=== PATIENT | female | born 1995 | race American Indian/Alaskan Native ===

== ENCOUNTER 2017-06-29 23:00 | Inpatient (IN) | payer SELFPAY ==
--- NOTE | 2017-06-30 00:46 | ED PDOC ---
HPI: Psych/Substance Abuse Time Seen by Provider: 06/29/17 23:20 Chief Complaint (Nursing): Psychiatric Evaluation Chief Complaint (Provider): Psychiatric Evaluation History Per: Patient History/Exam Limitations: no limitations Current Symptoms Are (Timing): Still Present Suicide/Self Injury Attempted (Context): None Associated Symptoms: Depression Additional Complaint(s): 22 year old female presents to ED for a psychiatric evaluation and has no past medical history. Police state that patient was [place] by the pier and admitted to feeling depressed. Agreed to be evaluated at [place] ED for depression. PCP: None Past Medical History Reviewed: Historical Data, Nursing Documentation, Vital Signs Vital Signs: Last Vital Signs Temp 98.0 F 06/29/17 23:03 Pulse 118 H 06/29/17 23:03 Resp 16 06/29/17 23:03 BP 144/88 06/29/17 23:03 Pulse Ox 99 06/29/17 23:03 - Medical History PMH: No Chronic Diseases - Surgical History Surgical History: No Surg Hx - Family History Family History: States: No Known Family Hx - Allergies Allergies/Adverse Reactions: Allergies Allergy/AdvReac Type Severity Reaction Status Date / Time No Known Allergies Allergy Verified 06/29/17 23:03 Review of Systems ROS Statement: Except As Marked, All Systems Reviewed And Found Negative Psych: Positive for: Depression Physical Exam - Reviewed Nursing Documentation Reviewed: Yes Vital Signs Reviewed: Yes - Physical Exam Appears: Positive for: Non-toxic, No Acute Distress Skin: Positive for: Normal Color, Warm, Dry Eye Exam: Positive for: Normal appearance Neck: Positive for: Normal, Painless ROM, Supple Cardiovascular/Chest: Positive for: Regular Rate, Rhythm, Tachycardia Respiratory: Positive for: Normal Breath Sounds. Negative for: Respiratory Distress Gastrointestinal/Abdominal: Positive for: Normal Exam, Soft. Negative for: Tenderness Back: Positive for: Normal Inspection Extremity: Positive for: Normal ROM. Negative for: Deformity Neurologic/Psych: Positive for: Alert, Oriented, Mood/Affect (flat affect) - Laboratory Results Result Diagrams: 06/30/17 03:30 06/30/17 03:30 - ECG O2 Sat by Pulse Oximetry: 99 (RA) Pulse Ox Interpretation: Normal Medical Decision Making Medical Decision Makin Initial impression: crisis evaluation Initial plan: * 1:1 OBS * Crisis evaluation * UPreg * UDip * Influenza A B 0259 Patient evaluated by crisis and will be admitted for further treatment under Dr. Perkins. Labs reviewed: no clinically significant abnormalities. Dx: depression. Patient is medically stable for psychiatric admission. 0441 CXR: NAD Scribe Attestation: Documented by Bertha Jj acting as a scribe for Matthew Burroughs MD. Scribmay Attestation: All medical record entries made by the Scribe were at my direction and personally dictated by me. I have reviewed the chart and agree that the record accurately reflects my personal performance of the history, physical exam, medical decision making, and the department course for this patient. I have also personally directed, reviewed, and agree with the discharge instructions and disposition. Disposition - Clinical Impression Clinical Impression: Depression - Patient ED Disposition Is Patient to be Admitted: Yes - Disposition Disposition Time: 03:00 Condition: FAIR - Pt Status Changed To: Hospital Disposition Of: Inpatient (INPATIENT PSYCH) - Admit Certification Admit to Inpatient:: After my assessment, the patient will require hospitalization for at least two midnights. This is because of the severity of symptoms shown, intensity of services needed, and/or the medical risk in this patient being treated as an outpatient. - POA Present On Arrival: None
[2017-06-30 03:36] LABS: BASO % 0.6 % (0.0-2.0); EOS % 0.5 % (0.0-4.0); HEMATOCRIT 38.7 % (34.0-47.0); LYMPH # 3.4 K/uL (1.0-4.3); LYMPH % 40.8 % (20.0-40.0); MEAN CELL VOLUME 89.3 fl (81.0-99.0); MEAN CORPUSCULAR HEMOGLOBIN 29.2 pg (27.0-31.0); MEAN CORPUSCULAR HGB CONC 32.7 g/dL (33.0-37.0); MONO # 0.5 K/uL (0.0-0.8); MONO % 5.5 % (0.0-10.0); NEUT # 4.4 K/uL (1.8-7.0); NEUT % 52.6 % (50.0-75.0); NRBC % 0.2 % (0.0-0.0); WHITE BLOOD COUNT 8.3 K/uL (4.8-10.8)
[2017-06-30 03:48] LABS: ALB/GLOB RATIO 1.4 (1.0-2.1); ALCOHOL SERUM < 10 mg/dl (0-10); ALKALINE PHOSPHATASE 56 U/L (38-126); ALT/SGPT 23 U/L (9-52); AST/SGOT 18 U/L (14-36); BILIRUBIN,TOTAL 0.5 mg/dl (0.2-1.3); BLOOD UREA NITROGEN 8 mg/dl (7-17); CARBON DIOXIDE 27 mmol/L (22-30); CHLORIDE 105 mmol/L (98-107); GFR AFRICAN-AMERICAN > 60; GLUCOSE,RANDOM 112 mg/dL (65-105); SODIUM 144 mmol/l (132-148); TOTAL PROTEIN 7.9 G/DL (6.3-8.2)
[2017-06-30 03:54] LABS: RBC URINE 2 /hpf (0-3); URINE BACTERIA RARE (<OCC); URINE BILIRUBIN NEGATIVE (NEGATIVE); URINE BLOOD NEGATIVE (NEGATIVE); URINE COLOR YELLOW (YELLOW); URINE GLUCOSE (UA) NEG (Normal); URINE KETONE 80 mg/dL (NEGATIVE); URINE LEUKOCYTE ESTERASE NEG Leu/uL (Negative); URINE PROTEIN 30 mg/dL (NEGATIVE); URINE UROBILINOGEN 0.2-1.0 mg/dL (0.2-1.0); WBC URINE 1 /hpf (0-5)
[2017-06-30] MEDS ORDERED: Alum-Mag Hydrox-Simethicone Susp (30 mL) PO PRN (05:15)
[2017-06-30] MEDS ORDERED: Magnesium Hydroxide Susp 30 ml UD PO PRN (05:15)
[2017-06-30] MEDS ORDERED: DiphenhydrAMINE 50 mg/ml Inj IM PRN (05:15)
--- NOTE | 2017-06-30 05:29 | PCM.BM ---
<Bunny Moreno - Last Filed: 06/30/17 05:27> Treatment Plan Problems - Problems identified on initial assessmt Hopelessness/Helplessness Date Initiated: 06/30/17 Time Initiated: 05:27 Assessment reference: NA Status: Active Treatment assets and liabiliti Patient Assests: cooperative, educated, physically healthy, good support system , negotiates basic needs, cognitively intact Patient Liabilities: relationship conflicts (relationship conflicts with ex boyfriend) - Milieu Protocol Maintain good personal hygiene: daily Encourage regular showers, daily Remind patient to perform daily oral care, daily Assist patient to perform ADL's Maintain personal safety: every shift Educate patient to report safety concerns to staff, every shift Monitor environment for contraband/sharps Medication safety: Monitor for expected outcome, potential side effects: every shift, Assess barriers to learning: every shift, Assess readiness for medication education: every shift <Denia Perkins - Last Filed: 06/30/17 08:39> - Diagnosis (1) Depressive disorder Status: Acute Interventions: Medication management, Individual and group therapy, Psychoeducation 06/30/17 08:39 <Mia Ayers - Last Filed: 06/30/17 14:03> Treatment Plan Problems - Problems identified on initial assessmt Hopelessness/Helplessness Priority: 2 Suicidal Ideation Date Initiated: 06/30/17 Time Initiated: 08:28 Assessment reference: SW, NA Status: Active Priority: 1 Family Contact Family contact: Patient agrees to contact Family contact name: Nestor - mother Family contacted how many times per week?: 2 Family contact comment: [phone] - Outside Agency [facility] Care involvment: Not involved (Pt reported she was seen 1x at the mental health clinic and never returned for further treatment/counseling) Agency contact number: - Goals for Treatment Patient goals for treatment: Pt to be encouraged to attend activity and clinical groups 3-5x per week to identify at least 2 contributing factors to depression and suicide attempt. Psycho-education to be provided to patient/ family regarding benefits of medications and treatment adherence. Pt to be encouraged to participate in group milieu to develop effective coping skills to reduce depression and free of suicide ideation. Coordinate discharge resource needs by providing referral for psychiatric treatment follow up in the community. Discharge/Continuing Care - Education Needs Education Needs: Family Medication, Family Diagnosis/Disease Process, Family Coping Skills, Family Community resources, Family Activities of Daily Living, Family Health Practices/Safety, Family Personal Hygiene/Grooming, Family Aftercare Safety Plan, Patient Medication, Patient Diagnosis/Disease Process, Patient Coping Skills, Patient Community resources, Patient Activities of Daily Living, Patient Health Practices/Safety, Patient Personal Hygiene/Grooming, Patient Aftercare Safety Plan - Discharge Discharge Criteria: Tolerates medication w/o severe side effects, Free of Suicidal thoughts, Ability to care for self, Reduction of target symptoms Discharge to:: Home, With Family - Additional Comments 06/30/17 13:56 Pt seen and discussed in team meeting. Reason for admission reviewed and discussed. Pt reported she was referred to the ED by her ex-boyfriend because "he was scared i would hurt myself." Pt reported she believes her ex-boyfriend contacted the [place] Police. Pt reported she took an Uber form [place] to [facility] because "I needed time for myself." Pt denied suicide ideation and intent. Pt is contradicting report provided to P[facility] by [facility]. Pt reported she has been feeling stressed bout finals, her ex-boyfriend and step- dad. Pt reported "we just not agreeing" in reference to step-dad. Pt was vague and guarded with responses. Pt's social and medical issues reviewed and discussed. Pt's medications reviewed and pt refused. Tx plan reviewed and discussed. Pt is not agreeable to remaining in the hospital and is requesting to be discharged. Equities Analyst informed pt that due tot he seriousness of the events that took place prior to admission that a further assessment is needed. Pt requesting to be discharged. 48 hour notice of intent to leave reviewed and explained to pt. Pt stated "I'll take my chances" and signed the form at 10: 25AM. Equities Analyst explained to pt that she will be screened by [facility] for further evaluation and assessment. Pt is agreeable. Pt provided junior underwriter with verbal authorization to contact her mother, Nestor ([phone]) for collateral information. - Treatment Team Participation Discussed with Family/SO: No (Discussed and reviewed via telephone) Was Patient/Family/SO present at Treatment Team Meeting: Yes
[2017-06-30 05:38] VITALS: RESP 18
[2017-06-30 06:40] VITALS: O2SAT 99
--- NOTE | 2017-06-30 08:47 | PCM.PSYCH ---
Initial Psychiatric Evaluation - Initial Psychiatric Evaluation Type of Admission: Voluntary Legal Status: Capacity Chief Complaint (in patient's own words): "[place] just to [place] a [place]." Patient's Reaction to Hospitalization: HPI: 22 yo female BIB [facility] for suicidal ideation after Uber haulpak driver and ex- bf contacted Police due to concerns about their wellbeing. As per [facility], the patient's ex-bf told them that the patient was heading to [place] w/ suicidal ideations to jump into the river. When police arrived the patient was found with her hands on the railing appearing to want to jump into the river. Uber haulpak driver also contacted [facility] w/ concerns that the patient may be suicidal. [facility] pinged her cell phone location to find her. Patient is denying that this is true. She states that she was not suicidal and is minimizing why she is in the hospital. She denies feeling depressed and anxious but was tearful on interview. She denies that she was trying to harm herself and states that she just [place] the [place] to take a break from her life. She does not want to be hospitalized and is not agreeable to psychiatric medications. Denies AH/VH/paranoia/delusions. PMHx: Denies acute medical issues PPHx: Denies h/o psychiatric treatment or medications. Denies h/o suicide attempts. ALL: NKDA SHx: From [facility]. Lives w/ parents. In community college. Denies drugs/etoh/ cig use. Current Medications: Active Medications Generic Name Dose Route Start Last Admin Trade Name Freq PRN Reason Stop Dose Admin Acetaminophen 650 mg 06/30/17 05:15 Tylenol 325mg Tab PO Q4 PRN Pain, moderate (4-7) Al Hydrox/Mg Hydrox/Simethicone 30 ml 06/30/17 05:15 Maalox Plus 30 Ml PO Q4 PRN Dyspepsia Diphenhydramine HCl 50 mg 06/30/17 05:15 Benadryl IM Q6 PRN Extrapyramidal S/S Unable PO Diphenhydramine HCl 50 mg 06/30/17 05:15 Benadryl PO Q6 PRN Extrapyramidal Symptoms Haloperidol 5 mg 06/30/17 05:15 Haldol PO Q4 PRN Agitation Haloperidol Lactate 5 mg 06/30/17 05:15 Haldol IM Q4 PRN Agitation, Unable to Take PO Lorazepam 2 mg 06/30/17 05:15 Ativan IM Q4 PRN Anxiety/Agitation,Unable PO Lorazepam 2 mg 06/30/17 05:15 Ativan PO Q4 PRN Anxiety/Agitation Magnesium Hydroxide 30 ml 06/30/17 05:15 Milk Of Magnesia PO HS PRN Constipation Past Psychiatric History - Past Psychiatric History Previous Treatment History: None Pertinent Medical Hx (Current Medical&Sleep Prob, Allergies): Allergies Allergy/AdvReac Type Severity Reaction Status Date / Time No Known Allergies Allergy Verified 06/29/17 23:03 Review of Systems - Psychiatric Psychiatric: As Per HPI, Change in Appetite, Depression, Suicidal Ideation Mental Status Examination - Personal Presentation Personal Presentation: Looks stated age - Affect Affect: Depressed - Motor Activity Motor Activity: Calm - Reliability in Providing Information Reliability in Providing Information: Fair (Patient is able to provide information but is minimizing why she is in the hospital) - Speech Speech: Organized - Mood Mood: Neutral - Formal Thought Process Formal Thought Process: No Impairment - Hallucinations/Delusions Additional comments: NO AH/VH/paranoia/delusions - Obsessions/Compulsions Obsessions: No Compulsions: No - Cognitive Functions Orientation: Person, Place, Situation, Time Sensorium: Alert Attention/Concentration: Attentive Estimate of Intelligence: Average Judgement: Imparied, as evidence by: Poor judgement, Imparied, as evidence by: Lack of insight into illness Memory: Recent intact, as evidence by: Ability to recall events of the day, Recent intact, as evidence by: 3/3 object recall, Remote intact, as evidenced by : Abilit to recall sig. life events, Remote intact, as evidenced by: Ability to recall historical events - Risk Risk: Suicidal - Strength & Assets Inventory Strength & Assets Inventory: Family support, Cooperative DSM 5 DX - DSM 5 DSM 5 Diagnosis: Major Depressive Disorder - Recommended/Plan of Treatment Treatment Recommendations and Plan of Treatment: Major Depressive Disorder; patient submitted a 48 hour letter requesting discharge. She will be screened for involuntary admission as she is an acute danger to herself. -Admit to psychiatry unit -Individual and group therapy -Screen for involuntary admission -Patient not agreeable to taking psychiatric medications at this time -Medicine consult -Disposition planning Discharge Plan and Discharge Criteria: Discharge patient when she is psychiatrically stable or transfer to [facility] for involuntary admission if she is committed. - Smoking Cessation Smoking Cessation Initiated: No Reason for not providing: Not indicated
[2017-06-30 10:12] LABS: T4 13.3 ug/dl (5.5-11.0)
[2017-06-30 10:25] LABS: THYROID STIMULATING HORMONE 1.74 mIU/ML (0.46-4.68)
--- NOTE | 2017-06-30 11:07 | RAD ---
HISTORY: admit COMPARISON: No prior. TECHNIQUE: Chest PA and lateral FINDINGS: LUNGS: No active pulmonary disease. PLEURA: No significant pleural effusion identified. No pneumothorax apparent. CARDIOVASCULAR: Normal. OSSEOUS STRUCTURES: No significant abnormalities. VISUALIZED UPPER ABDOMEN: Normal. OTHER FINDINGS: None. IMPRESSION: No active disease.
--- NOTE | 2017-06-30 11:16 | CARD ---
APPROVED REPORT EKG Measurement Heart [id number] <Conclusion> Sinus tachycardia Otherwise normal ECG
[2017-07-01 06:09] VITALS: BP 112/66; PULSE 81; TEMP 97.7
--- NOTE | 2017-07-01 08:39 | PCM.PYCHDC ---
Mental Status Examination - Mental Status Examination Orientation: Person, Place, Situation, Time Memory: Intact Mood: Neutral Affect: Broad Speech: Appropriate Attention: WNL Concentration: WNL Association: WNL Fund of Knowledge: WNL Formal Thought Process: No Impairment Description of patient's judgement and insight: Fair I/J Psychotic Thoughts and Behaviors: No AH/VH/paranoia/delusions Suicidal Ideation: No Current Homicidal Ideation?: No Discharge Summary - Discharge Note Reason for Hospitalization: HPI: 22 yo female BIB [facility] for suicidal ideation after Uber pile driver operator and ex- bf contacted Police due to concerns about their wellbeing. As per [facility], the patient's ex-bf told them that the patient was heading to [place] w/ suicidal ideations to jump into the river. When police arrived the patient was found with her hands on the railing appearing to want to jump into the river. Uber pile driver operator also contacted [facility] w/ concerns that the patient may be suicidal. [facility] pinged her cell phone location to find her. Patient is denying that this is true. She states that she was not suicidal and is minimizing why she is in the hospital. She denies feeling depressed and anxious but was tearful on interview. She denies that she was trying to harm herself and states that [place] to [place] a [place] from her life. She does not want to be hospitalized and is not agreeable to psychiatric medications. Denies AH/VH/paranoia/delusions. PMHx: Denies acute medical issues PPHx: Denies h/o psychiatric treatment or medications. Denies h/o suicide attempts. ALL: NKDA SHx: From [facility]. Lives w/ parents. In community college. Denies drugs/etoh/ cig use. Laboratory Data: Abnormal Lab Results 06/30/17 06/30/17 06/30/17 09:37 09:37 09:37 Hemoglobin A1c 4.8 Triglycerides 45 Cholesterol 160 LDL Cholesterol Direct 85 HDL Cholesterol 52 Thyroxine (T4) 13.3 H TSH 3rd Generation 1.74 RPR Nonreactive Consultations:: List each consultation separately and include: 1. Reason for request. 2. Findings. 3. Follow-up Consultations: Medicine consult Summary of Hospital Course include:: 1. Description of specific treatment plan utilized for patients during their course of treatmen. 2. Summarize the time- course for resolution of acute symptoms and/or regressed behaviors. 3. Describe issues identified and worked on during hospitalization. 4. Describe medication utilized. 5. Describe medical problems identified and treated. 6. Reassessment of suicide risk Summary of Hospital Course: Patient was admitted to the psychiatry unit. Individual and group therapy were provided. Patient was not agreeable to treatment w/ psychotropic medications. She has denies suicidal ideation since admission. She was screened for involuntary admission and not accepted, so she will be discharged back to home. Patient is goal oriented and is hopeful for the future. - Diagnosis (1) Depressive disorder Current Visit: Yes Status: Resolved - Final Diagnosis (DSM 5) Condition upon Discharge: STABLE DSM 5: Adjustment Disorder Disposition: HOME/ ROUTINE Follow-up Treatment Plan: Adjustment Disorder; patient submitted a 48 hour letter requested discharge, was screened and does not meet criteria for involuntary commitment. Patient denies acute ideation to harm self. She will be discharged to home. Patient is not agreeable to treatment with psychotropic medications at this time. - Smoking Cessation Smoking Cessation Medication prescribed: No Reason for not providing: Not indicated - Antipsychotic Medications Pt discharged on 2 or more routine antipsychotic medications: No
== END 2017-07-01 12:09 | disposition home or self-care (01) | DRG 881 ==
LOC: H.ER 23:00 → H.ERHOLD 06-30 02:37 → H.STEP 06-30 05:05
PROVIDERS: ADMIT Psychiatry & Neurology Psychiatry; ATTEND Psychiatry & Neurology Psychiatry
PROC: GZHZZZZ Group Psychotherapy (ICD-10-PCS; principal; 2017-06-30)
PROC: GZ58ZZZ Individual Psychotherapy, Cognitive-Behavioral (ICD-10-PCS; 2017-06-30)
DX: F32.9 Major depressive disorder, single episode, unspecified (principal); R45.851 Suicidal ideations; F43.20 Adjustment disorder, unspecified